=== PATIENT | female | born 1960 | race Caucasian/White ===

== ENCOUNTER 2022-08-01 16:09 | Outpatient (CLI) | payer OTHER, SELFPAY ==
--- NOTE | 2022-08-01 16:15 | CRLHL7_ITS ---
For Patients: As a result of the Century Cures Act, medical imaging exams and procedure reports are released immediately into your electronic medical record. You may view this report before your referring provider. If you have questions, please contact your health care provider. BILATERAL SCREENING MAMMOGRAM WITH COMPUTER-AIDED DETECTION AND TOMOSYNTHESIS TECHNIQUE: CC and MLO views were obtained. These mammographic images have been obtained using full-field digital technique. These mammographic images were interpreted with the benefit of computer-aided detection. Breast Tomosynthesis was used in this interpretation. COMPARISON FILM: 04/05/2021. BREAST COMPOSITION: The breasts are heterogeneously dense, which may obscure small masses FINDINGS: Possible 0.7 cm asymmetry RIGHT medial breast, 4 cm from the nipple. Negative findings LEFT breast. IMPRESSION: Possible RIGHT breast asymmetry. ASSESSMENT: BI-RADS Category 0: Incomplete: Need Additional Imaging Evaluation and/or Prior Mammograms for Comparison RECOMMENDATION: Recommend CC spot compression view and a 90-degree lateral view. Additionally, ultrasound may be needed during the diagnostic evaluation. The [facility] will contact the patient for follow-up. A lay language report of this examination will be provided to the patient. Lashell Arias M.D. Diagnostic/Breast Radiologist [email or web address] Transcribed: 9:23 a.m. DW/Dictated by: Lashell Arias MD @ 08/02/2022 8:58:00 AM (Electronically Signed)
== END 2022-08-01 16:10 | disposition home or self-care (01) ==
LOC: MAMMO 16:10
PROVIDERS: PCP Family Medicine; Visit Provider Obstetrics & Gynecology
DX: Z12.31 Encounter for screening mammogram for malignant neoplasm of breast (principal); R92.2 Inconclusive mammogram; N63.10 Unspecified lump in the right breast, unspecified quadrant
CPT/HCPCS: 77063; 77067

== ENCOUNTER 2022-08-09 07:31 | Outpatient (CLI) | payer OTHER, SELFPAY ==
--- NOTE | 2022-08-09 07:45 | CRLHL7_ITS ---
For Patients: As a result of the Cures Act, medical imaging exams and procedure reports are released immediately into your electronic medical record. You may view this report before your referring provider. If you have questions, please contact your health care provider. DIGITAL DIAGNOSTIC RIGHT MAMMOGRAM USING TOMOSYNTHESIS AND COMPUTER-AIDED DETECTION RIGHT BREAST ULTRASOUND CLINICAL HISTORY: RIGHT breast mass/asymmetry. COMPARISON: 08/01/2022. TECHNIQUE: Digital RIGHT mammogram in two projections. Tomosynthesis and CAD utilized. Real-time ultrasound imaging of RIGHT breast with imaging documentation. BREAST COMPOSITION: The breast is heterogeneously dense, which may obscure small masses. FINDINGS: 3D spot compression CC and 3D true lateral RIGHT breast mammograms submitted. Decreased conspicuity of previously noted asymmetric density. Benign calcifications are present. No suspicious masses or architectural distortion. Targeted RIGHT breast ultrasound performed in the lower inner quadrant 4-5 o`clock 4 cm from the nipple. Normal fibroglandular tissue is present. No fibrocystic changes or solid masses. IMPRESSION: Normal additional mammographic views and normal targeted RIGHT breast ultrasound. No evidence of malignancy. RECOMMENDATIONS: Annual BILATERAL screening mammography. Results and recommendations discussed with the patient. BI-RADS Category 2: Benign A lay language report of this examination will be provided to the patient. Dictated by Bk Hemphill MD @ 08/09/2022 9:41:56 AM /Dictated by: Bk Hemphill MD @ 08/09/2022 9:41:00 AM (Electronically Signed)
--- NOTE | 2022-08-09 08:15 | CRLHL7_ITS ---
For Patients: As a result of the Century Cures Act, medical imaging exams and procedure reports are released immediately into your electronic medical record. You may view this report before your referring provider. If you have questions, please contact your health care provider. PLEASE SEE RIGHT MAMMOGRAM OF SAME DAY. CRL:bhe be/Dictated by: Bk Hemphill MD @ 08/09/2022 9:42:00 AM (Electronically Signed)
== END 2022-08-09 07:32 | disposition home or self-care (01) ==
PROVIDERS: PCP Family Medicine; Visit Provider Obstetrics & Gynecology
DX: N63.10 Unspecified lump in the right breast, unspecified quadrant (principal); R92.8 Other abnormal and inconclusive findings on diagnostic imaging of breast
CPT/HCPCS: 76642; 77065; G0279

== ENCOUNTER 2023-09-04 19:14 | Outpatient (CLI) | payer OTHER, SELFPAY ==
--- NOTE | 2023-09-04 19:30 | CRLHL7_ITS ---
For Patients: As a result of the Century Cures Act, medical imaging exams and procedure reports are released immediately into your electronic medical record. You may view this report before your referring provider. If you have questions, please contact your health care provider. BILATERAL SCREENING MAMMOGRAM WITH COMPUTER-AIDED DETECTION AND TOMOSYNTHESIS TECHNIQUE: CC and MLO views were obtained. These mammographic images have been obtained using full-field digital technique. These mammographic images were interpreted with the benefit of computer-aided detection. Breast Tomosynthesis was used in this interpretation. COMPARISON FILM: 08/09/22, 08/01/22, 04/05/21. FINDINGS: The breasts are heterogeneously dense, which may obscure small masses IMPRESSION: There is no radiographic evidence for malignancy. ASSESSMENT: BI-RADS Category 2: Benign RECOMMENDATION: Routine screening mammogram in 1 year. A lay language report of this examination will be provided to the patient. Bk Hemphill M.D. Diagnostic Radiologist [email or web address] BETTY/Dictated by: Bk Hemphill MD @ 09/05/2023 11:48:00 AM (Electronically Signed)
== END 2023-09-04 19:15 | disposition home or self-care (01) ==
PROVIDERS: PCP Family Medicine; Visit Provider Family Medicine
DX: Z12.31 Encounter for screening mammogram for malignant neoplasm of breast (principal); R92.2 Inconclusive mammogram
CPT/HCPCS: 77063; 77067

== ENCOUNTER 2024-05-20 09:45 | Outpatient (RCR) | payer OTHER, SELFPAY | END 2024-09-16 10:24 | disposition home or self-care (01) | PROVIDERS: PCP Family Medicine; Visit Provider Family Medicine | DX: M25.512 Pain in left shoulder (principal); S46.002A Unspecified injury of muscle(s) and tendon(s) of the rotator cuff of left shoulder, initial encounter; R53.1 Weakness; Z74.09 Other reduced mobility; Z51.89 Encounter for other specified aftercare | CPT/HCPCS: 97110; 97140; 97161 ==

== ENCOUNTER 2024-09-09 19:19 | Outpatient (CLI) | payer OTHER, SELFPAY ==
--- NOTE | 2024-09-09 19:20 | CRLHL7_ITS ---
For Patients: As a result of the Century Cures Act, medical imaging exams and procedure reports are released immediately into your electronic medical record. You may view this report before your referring provider. If you have questions, please contact your health care provider. BILATERAL SCREENING MAMMOGRAM WITH COMPUTER-AIDED DETECTION AND TOMOSYNTHESIS TECHNIQUE: CC and MLO views were obtained. These mammographic images have been obtained using full-field digital technique. These mammographic images were interpreted with the benefit of computer-aided detection. Breast Tomosynthesis was used in this interpretation. COMPARISON FILM: 09/04/23, 08/09/22, 08/01/22. FINDINGS: The breasts are heterogeneously dense, which may obscure small masses. IMPRESSION: There is no radiographic evidence for malignancy. ASSESSMENT: BI-RADS Category 1: Negative RECOMMENDATION: Routine screening mammogram in 1 year. A lay language report of this examination will be provided to the patient. Bk Hemphill M.D. Diagnostic Radiologist [email or web address] SP/Dictated by: Bk Hemphill MD @ 09/10/2024 10:58:00 AM (Electronically Signed)
== END 2024-09-09 19:20 | disposition home or self-care (01) ==
LOC: MAMMO 19:20
PROVIDERS: PCP Family Medicine; Visit Provider Family Medicine
DX: Z12.31 Encounter for screening mammogram for malignant neoplasm of breast (principal); R92.333 Mammographic heterogeneous density, bilateral breasts
CPT/HCPCS: 77063; 77067